=== PATIENT | male | born 1985 | race Caucasian/White ===

== ENCOUNTER 2022-09-17 20:46 | Emergency (ER) | payer BC ==
[~2022-09-17] VITALS: Ht 185.4 cm; Wt 81.7 kg
[~2022-09-17 20:46] MED LIST: ALBU90I INH; ALBU90OI INH; ALBU90OI61 INH; AMOCLA500 PO; AMOCLA875 PO; AMOX1XR PO; AZIT250 PO; CODACEE120; FLUSAL2505 IH; HYDACE5 PO; PRED10 PO; PRED20 PO; PROACE100 PO
[2022-09-17] MEDS ORDERED: CEPH500 PO (23:28)
[2022-09-17 23:54] VITALS: BP 131/73
== END 2022-09-17 23:54 | disposition home or self-care (01) ==
LOC: ER 20:46
DX: S63.283A Dislocation of proximal interphalangeal joint of left middle finger, initial encounter (principal); Z88.2 Allergy status to sulfonamides; Z23 Encounter for immunization; W01.198A Fall on same level from slipping, tripping and stumbling with subsequent striking against other object, initial encounter
CPT/HCPCS: 12001; 26770; 73140; 90471; 90714; 96365-59; 96375-59; 99283-25; A9270; J0690; J1170; J2405